=== PATIENT | female | born 1955 | race Caucasian/White ===

== ENCOUNTER 2021-01-22 07:00 | Day surgery (SDC) | payer OTHER ==
[2021-01-21 12:58] VITALS: BMI 28.3
[2021-01-22] MEDS ORDERED: ceFAZolin 2 GRAM PREMIX BAG IVPB ONE (08:52)
[2021-01-22] MEDS ORDERED: ONDANSETRON 4 MG/2 ML VIAL IVPUSH PRN (10:42)
[2021-01-22] MEDS ORDERED: oxyCODONE HCL 5 MG TABLET PO PRN ×2 (10:42)
[2021-01-22] MEDS ORDERED: LACTATED RINGERS SOLUTION 1,000 ML IV SCH (10:45)
[2021-01-22 11:53] VITALS: BP 124/72; PULSE 75; TEMP 97.3
== END 2021-01-22 12:30 | disposition home or self-care (01) ==
LOC: JASU-SURG 07:00
PROVIDERS: ATTEND Orthopaedic Surgery
PROC: 0RBJ4ZZ Excision of Right Shoulder Joint, Percutaneous Endoscopic Approach (ICD-10-PCS; principal; 2021-01-22 09:00)
DX: M75.41 Impingement syndrome of right shoulder (principal); M75.101 Unspecified rotator cuff tear or rupture of right shoulder, not specified as traumatic
CPT/HCPCS: 94760